=== PATIENT | male | born 1990 | race Caucasian/White ===

== ENCOUNTER 2017-09-13 18:34 | Emergency (ER) | payer OTHER ==
[~2017-09-13] VITALS: Ht 165.1 cm; Wt 75.0 kg
[2017-09-13] MEDS ORDERED: KETOROLAC TROMETHAMINE 10 MG TABLET PO ONE (20:15)
[2017-09-13] MEDS ORDERED: PERTUSS(ACELL),DIPH,TET VAC/PF 0.5 ML VIAL IM ONE (21:00)
[2017-09-13 21:30] VITALS: BP 110/75
== END 2017-09-13 21:45 | disposition home or self-care (01) ==
LOC: EMS 18:36
DX: S61.432A Puncture wound without foreign body of left hand, initial encounter (principal); L03.113 Cellulitis of right upper limb; F31.9 Bipolar disorder, unspecified; W26.0XXA Contact with knife, initial encounter; Y93.E8 Activity, other personal hygiene; Y92.89 Other specified places as the place of occurrence of the external cause; Y99.8 Other external cause status
CPT/HCPCS: 73130; 90471; 90715; 96372; 99284; J0690

== ENCOUNTER 2022-05-08 18:39 | Inpatient (IN) | payer MEDICAID ==
[~2022-05-08] VITALS: Ht 165.1 cm; Wt 70.8 kg
[2022-05-08] MEDS ORDERED: HALOPERIDOL 5 MG TABLET PO PRN (19:45)
[2022-05-08] MEDS ORDERED: ZOLPIDEM TARTRATE 10 MG TABLET PO PRN (19:45)
[2022-05-08] MEDS ORDERED: LORazepam 2 MG TABLET PO PRN (19:45)
[2022-05-08 19:55] LABS: GLUCOMETER DEV NAME(LOC) POC.BV
[2022-05-08] MEDS ORDERED: FLUO10CA24 PO (19:58)
[2022-05-08] MEDS ORDERED: DIVA-112 PO (19:58)
[2022-05-08] MEDS ORDERED: QUET100T PO (19:58)
[2022-05-08] MEDS ORDERED: LURA40TA2 PO (20:31)
[2022-05-08 20:34] VITALS: BP 106/59
[2022-05-08] MEDS ORDERED: INFLUENZA VIRUS VACCINE QVS 2022-23 (6MO+)/PF 60 MCG/0.5 ML SYRINGE IM. ONE (21:15)
[2022-05-09] MEDS ORDERED: HYDR-4808 PO (00:51)
[2022-05-09] MEDS ORDERED: PARO-38 PO (00:51)
[2022-05-09] MEDS ORDERED: OLAN10TA74 PO (00:51)
[2022-05-09 07:14] LABS: BASOPHILS % (AUTO) 1.1 % (0.0-2.0); EOSINOPHILS % (AUTO) 2.2 % (1.0-6.0); HEMATOCRIT 40.1 % (41-53); HEMOGLOBIN 13.4 g/dL (13.5-17.5); LYMPHOCYTES # (AUTO) 2.5 K/uL (1.0-4.8); LYMPHOCYTES % (AUTO) 37.5 % (22.0-44.0); MEAN CORPUSCULAR HEMOGLOBIN 30.8 pg (26.0-34.0); MEAN CORPUSCULAR HGB CONC 33.4 G/dL (31.0-37.0); MEAN CORPUSCULAR VOLUME 92 fL (80-100); MONOCYTES # (AUTO) 0.5 K/uL (0.1-1.0); MONOCYTES % (AUTO) 7.9 % (2.0-9.0); NEUTROPHILS # (AUTO) 3.5 K/uL (1.8-7.7); NEUTROPHILS % (AUTO) 51.3 % (40.0-70.0); PLATELET COUNT (AUTO) 254 K/uL (150-450); RED BLOOD CELL COUNT(AUTO) 4.35 MIL/uL (4.50-5.90)
[2022-05-09 07:31] LABS: HEMOGLOBIN A1C 5.6 % (3.8-5.6)
[2022-05-09 07:42] LABS: ALANINE AMINOTRANSFERASE 55 U/L (12-78); ALBUMIN 3.8 g/dL (3.4-5.0); ALKALINE PHOSPHATASE 62 U/L (46-116); ANION GAP 7 mmol/L (8-16); ASPARTATE AMINOTRANSFERASE 60 U/L (15-37); BILIRUBIN,TOTAL 0.2 mg/dL (0.1-1.0); CALCIUM, TOTAL 9.1 mg/dL (8.8-10.5); CARBON DIOXIDE 31 mmol/L (22-29); CHLORIDE 108 mmol/L (98-107); CHOLESTEROL 130 mg/dL (131-200); CREATININE 0.84 mg/dL (0.60-1.30); FREE T4 (FREE THYROXINE) 0.69 ng/dL (0.76-1.46); GLOMERULAR FILTR. RATE CALC > 60 mL/min (>60); GLUCOSE,RANDOM 93 mg/dL (70-110); HDL CHOLESTEROL 64 mg/dL (40-60); LDL CHOL (CALC.) 56 mg/dL (0-130); POTASSIUM 4.4 mmol/L (3.5-5.1); SODIUM SERUM 146 mmol/L (136-145); THYROID STIMULATING HORMONE 1.84 uIU/mL (0.36-3.74); TRIGLYCERIDES 51 mg/dL (15-150); UREA NITROGEN, BLOOD 19 mg/dL (7-18)
[2022-05-09 10:22] VITALS: BP 109/60
[2022-05-09] MEDS: DIVALPROEX SODIUM 500 MG DR TABLET PO SCH (17:11)
[2022-05-09 20:15] VITALS: BP 117/62
[2022-05-09] MEDS ORDERED: OLANZapine 7.5 MG TABLET PO SCH (21:00)
[2022-05-09] MEDS ORDERED: ONDANSETRON HCL 4 MG TABLET PO PRN (23:30)
[2022-05-09] MEDS ORDERED: BACITRACIN 28 GM OINTMENT TP PRN (23:30)
[2022-05-09] MEDS ORDERED: DOCUSATE SODIUM 100 MG CAPSULE PO PRN (23:30)
[2022-05-09] MEDS ORDERED: LOPERAMIDE HCL 2 MG CAPSULE PO PRN (23:30)
[2022-05-09] MEDS ORDERED: MAG HYDROX/AL HYDROX/SIMETH ES 30 ML SUSPENSION UDCUP PO PRN (23:30)
[2022-05-09] MEDS ORDERED: OMEPRAZOLE 20 MG CAPSULE PO PRN (23:30)
[2022-05-09] MEDS ORDERED: ACETAMINOPHEN 325 MG TABLET PO PRN (23:30)
[2022-05-09] MEDS ORDERED: PETROLATUM,WHITE 28 GM JELLY TP PRN (23:30)
[2022-05-09] MEDS ORDERED: MAGNESIUM HYDROXIDE SUSPENSION 30 ML UDCUP PO PRN (23:30)
[2022-05-09] MEDS ORDERED: IBUPROFEN 600 MG TABLET PO PRN (23:30)
[2022-05-09] MEDS ORDERED: BENZOCAINE/MENTHOL LOZENGE PO PRN (23:30)
[2022-05-09] MEDS ORDERED: CloNIDine HCL 0.1 MG TABLET PO PRN (23:30)
[2022-05-09] MEDS ORDERED: ALBUTEROL SULFATE HFA 90 MCG/PUFF 8 GM INHALER IH PRN (23:30)
[2022-05-10 08:20] VITALS: BP 99/72
[2022-05-10] MEDS: DIVALPROEX SODIUM 500 MG DR TABLET PO SCH (08:46)
[2022-05-10] MEDS ORDERED: OLAN7.5T22 PO (12:38)
== END 2022-05-10 14:00 | disposition home or self-care (01) | DRG 753 ==
LOC: B3A 19:47
PROVIDERS: ADMIT Psychiatry & Neurology Psychiatry; ATTEND Psychiatry & Neurology Psychiatry
DX: F31.9 Bipolar disorder, unspecified (principal); R45.851 Suicidal ideations; Z20.822 Contact with and (suspected) exposure to COVID-19; F41.9 Anxiety disorder, unspecified; G47.00 Insomnia, unspecified; K59.00 Constipation, unspecified; Z91.51 Personal history of suicidal behavior; Z72.0 Tobacco use; Z71.6 Tobacco abuse counseling
CPT/HCPCS: 80053; 80061; 83036; 84439; 84443; 85025